=== PATIENT | male | born 1980 | race Two or more races ===

== ENCOUNTER 2016-12-07 02:02 | Observation (INO) | payer OTHER ==
[~2016-12-07] VITALS: Ht 180.3 cm; Wt 99.1 kg
[2016-12-07] MEDS ORDERED: SODIUM CHLORIDE 0.9% 1,000 ML IV ONE ×4 (02:16→09:30)
[2016-12-07 02:24] LABS: Urine RBC None Seen /hpf (0 - 3)
[2016-12-07 02:28] LABS: Urine Bilirubin Negative (Negative); Urine Blood Negative /uL (Negative); Urine Color Colorless (Yellow); Urine Nitrite Negative (Negative); Urine Urobilinogen Normal (Negative)
[2016-12-07 02:29] LABS: Urine Glucose 4+ mg/dL (Normal); Urine Ketone 1+ (Negative)
[2016-12-07 02:38] LABS: Basophils # (auto) 0 uL; Basophils % (auto) 0.6 % (0.0-2.0); Eosinophils # (auto) 0.2 uL; Eosinophils % (auto) 3.6 % (0.0-7.0); Hematocrit 45.8 % (41.0-53.0); Hemoglobin 15.8 g/dL (13.5-17.5); Lymphocytes # (auto) 1.3 uL; Lymphocytes % (auto) 21.3 % (10.0-50.0); Mean Corpuscular Hemoglobin 34.3 pg (28.0-32.0); Mean Corpuscular Hgb Conc. 34.5 g/dL (32.0-36.0); Mean Corpuscular Volume 99.3 fL (80.0-100.0); Mean Platelet Volume 10.3 fL (7.4-10.4); Monocytes # (auto) 0.4 uL; Monocytes % (auto) 7.1 % (0.0-12.0); Neutrophils # (auto) 4.2 uL; Neutrophils % (auto) 67.4 % (37.0-80.0); Platelet Count (auto) 221 10^3/uL (140-450); Red Cell Distribution Width 13.1 % (11.6-16.0); White Blood Cell 6.3 10^3/uL (4.4-10.8)
[2016-12-07] MEDS ORDERED: ACETAMINOPHEN 325 MG TAB PO ONE (02:45)
[2016-12-07 03:02] LABS: Albumin 3.9 g/dL (3.4-5.0); Bilirubin, Total 0.8 mg/dL (0.2-1.0); Calcium 8.1 mg/dL (8.5-10.1); Potassium 4.3 mmol/L (3.5-5.1)
[2016-12-07 03:05] LABS: BUN/Creatinine Ratio 15.4
[2016-12-07 03:06] LABS: Total Protein 7.7 g/dL (6.4-8.2)
[2016-12-07] MEDS ORDERED: InsuLIN REG 1unit/0.01ml Soln (100units/ml) IV ONE ×2 (05:30→07:30)
[2016-12-07] MEDS ORDERED: InsuLIN R (HUMAN) 100 UNITS in SODIUM CHL 0.9% 99 ML IV SCH (07:23)
[2016-12-07] MEDS ORDERED: DEXTROSE (50%) 50ML SYRG IV PRN (07:30)
[2016-12-07] MEDS ORDERED: ACCU-CHEK COMFORT CURVE STRIP VI SCH (08:00)
[2016-12-07 10:58] VITALS: BP 97/60
== END 2016-12-07 12:31 | disposition home or self-care (01) | DRG 420 ==
LOC: ER 02:07 → OVERFLOW 02:08 → UNDOADMOB 02:08 → OVERFLOW 07:25 → ER 12:10 → UNDODISOB 12:31 → ER 12:31
PROVIDERS: ADMIT Emergency Medicine; ATTEND Emergency Medicine
DX: E11.65 Type 2 diabetes mellitus with hyperglycemia (principal); I10 Essential (primary) hypertension; E86.0 Dehydration; E78.5 Hyperlipidemia, unspecified; Z79.4 Long term (current) use of insulin
CPT/HCPCS: 36415; 71020; 80053; 81001; 82962; 83735; 85025; 93005; 96361; 96374; 96376; 99285; G0378; J1815; J7030